=== PATIENT | male | born 1955 | race Caucasian/White ===

== ENCOUNTER 2022-03-22 00:08 | Day surgery (SDC) | payer MEDICARE, OTHER, SELFPAY ==
[2022-03-16 11:03] VITALS: BMI 36.2
--- NOTE | 2022-03-16 11:20 | PC.NURSE ---
Report to the Outpatient Waiting Room, entrance under the green pavilion located off [facility], at time ____1130___ on date ___03/22/22____. OR Time: __1329 . - You and your visitor will be asked a series of questions to screen for COVID 19 for your protection. - Only one visitor is allowed at this time. - The patient visitor is requested to leave or wait in car when not with patient. - A mask is required within the hospital. Patients may have clear liquids (water, carbonated beverages, clear teas, apple juice) until 3 hours prior to surgery (1030 AM) with a maximum of 20 ounces. - No food from midnight until time of surgery - Infants may have breast milk until 4 hours before surgery, infant formula 6 hours prior to surgery. - Children will be allowed to drink immediately following surgery. If applicable, please bring a bottle or sippy cup to assist with drinking. Juice, water, soda, and popsicles are readily available. For infants on formula, please bring formula the day of surgery. Pacifiers are allowed. Take the following medications with a SIP of water the morning of surgery: NONE Medications to discontinue per physician VITAMINS 3 DAYS PRIOR TO SURGERY, Date to take last dose 03/18/22 Please no make-up, nail arabic, hairspray, perfume, deodorant, or body powder the day of surgery. No jewelry (including any body piercings) or valuables the day of surgery, leave them at home. Please take a shower or bath the night before, or the morning of, surgery with an antibacterial soap. Wear comfortable, loose fitting clothing. Children are encouraged to wear pajamas. - Jewelry must be removed prior to entering the operating room. Rings and piercings that are not removed may be cut off. - The hospital will not accept responsibility for valuables. - Please leave all valuables, including medications, at home the day of surgery. If you are going home after surgery, a licensed moving van driver must drive you home. - NO public transportation without another adult. - We recommend that an adult stay with you for 24 hours following discharge. - We also recommend that you do not drive, make important decision, drink alcoholic beverages, or take any drugs that were not prescribed by your health care provider for at least 24 hours after your discharge time. For Pediatric surgeries, we recommend two adults accompany the child home (only one inside the building at this time). Follow any additional instructions given to you from your surgeon. If you or anyone in your household have experienced Covid symptoms in the past week, please notify your surgeon or the nurse liaison at the phone number below for possible testing. Telephone instructions given to ___PT and asked if any additional questions and then verbalized understanding. Patient advised to call surgeon office or pre surgery nurse liaison [phone] if any additional questions.
--- NOTE | 2022-03-21 14:01 | WPDANESEPPF ---
Anes - Initial Pre Proc Eval Procedure: Operation Date: 03/22/22 13:30 Proposed Procedures p Arthroscopic Left Knee Partial Medial Meniscectomy, Proceed As Indicated - Fletcher Pattreson MD Date/Time: 03/21/22 14:01 Surgeon: Fletcher Patterson MD Pre Op Diagnosis: acute medial meniscus tear left knee Patient Data Age: 66 Gender: M Height: 1.75 m Weight: 111.36 kg Allergies Allergy/AdvReac Type Severity Reaction Status Date / Time meperidine Allergy Unknown N/V Verified 03/16/22 10:58 Home Medications Medication Instructions Recorded Confirmed Type allopurinol 300 mg tablet 150 mg PO QAM 03/07/22 03/16/22 History atorvastatin 10 mg tablet 10 mg PO QAM 03/07/22 03/16/22 History cholecalciferol (vitamin D3) 10 10 mcg PO QAM 03/07/22 03/16/22 History mcg (400 unit) capsule coenzyme Q10 200 mg capsule (Co 200 mg PO HS 03/07/22 03/16/22 History Q-10) loratadine 10 mg tablet (Allergy 10 mg PO DAILY 03/07/22 03/16/22 History Relief (loratadine)) mecobalamin (vitamin B12) 1,000 2,000 mcg sublingual DAILY 03/07/22 03/16/22 History mcg disintegrating tablet,sublingual metformin 500 mg tablet 500 mg PO QID 03/07/22 03/16/22 History omeprazole 40 mg capsule,delayed 40 mg PO QAM 03/07/22 03/16/22 History release pioglitazone 30 mg tablet 30 mg PO QAM 03/07/22 03/16/22 History valsartan 160 mg tablet 160 mg PO QAM 03/07/22 03/16/22 History Patient hx anesthesia problems: none Family hx anesthesia problems: none Results Review: All pre-operative results and documents have been reviewed as part of the pre-operative evaluation. [facility] Past Medical History Medical History (Updated 03/21/22 @ 14:02 by Thor Stone MD) Arthritis Chronic GERD Diabetes Hyperlipidemia associated with type 2 diabetes mellitus Hypertension Obesity Surgical History Surgical History (Updated 03/07/22 @ 11:32 by Bianca Ellis MA) H/O hand surgery H/O neck surgery Hx of shoulder surgery Family History Family History (Updated 01/05/15 @ 09:04 by DOCTOR UNKNOWN) Other Family history of arthritis Family history of cardiovascular disease Family history of malignant neoplasm Hypertension Social History Social History (Updated 03/07/22 @ 11:33 by Bianca Ellis MA) Smoking status: Former smoker Tobacco type: cigarettes Second hand tobacco smoke exposure: No Additional smoking assessment comments: STATES QUIT SMOKING ABOUT 2015 UNABLE TO RECALL HOW MUCH OR HOW LONG Alcohol intake: current Alcohol use details: STATES VERY SELDOM Substance use: never Substance use type: does not use Living arrangements: with family Spiritual care concerns: No Anes - Eval Final PreProcedure Day of Procedure 03/21/22 14:01 Patient weight: obese Heart: regular rate and rhythm Lungs: clear to auscultation and normal air movement Airway: Mallampati scale class II Neurological: alert and oriented Last oral intake: >/= 8 hours ASA classification: III Emergent: no Anesthetic plan: proceed Anesthesia type and monitoring: general LMA Results Review: All pre-operative results and documents have been reviewed as part of the pre-operative evaluation. Informed Consent: The patient's anesthetic plan and its attendant risks and benefits were discussed with the patient/family/POA. Questions were solicited and answers provided to the satisfaction of the patient/family/POA.
[2022-03-22] VITALS (7 sets, daily range): BP systolic 120–151; BP diastolic 69–85; PULSE 62–70; RESP 16–20; TEMP 36.3–36.5; O2SAT 98–100
--- NOTE | 2022-03-22 10:25 | WPDHPUPDATE1 ---
History and Physical Update Update Date/Time: 03/22/22 10:25 History and Physical has been reviewed, including an updated exam of the patient. There are NO changes in the patient's condition. Risks, benefits, and alternatives have been discussed and questions answered. Patient agrees to proceed with procedure.
[2022-03-22] MEDS: LACTATED RINGERS 1,000 ML 30 ML IV CONT ×2 (12:15→14:34)
[2022-03-22] MEDS: KETOROLAC 15 MG/ML VIAL (*BKC) IV PUSH (12:21)
[2022-03-22] MEDS: ACETAMINOPHEN 500 MG TABLET 1000 MG PO (12:21)
[2022-03-22] MEDS: ceFAZolin 2 GM/D5W 50 ML 2 GM/50 ML BAG IVPB (13:30)
[2022-03-22 13:32] LABS: Glucose Point of Care 101 mg/dl (65-105)
[2022-03-22] MEDS: BUPIVACAINE/EPINEPHRINE 0.25% 50 ML VIAL INFILTRATE (13:53)
[2022-03-22 14:44] LABS: Glucose Point of Care 110 mg/dl (65-105)
--- NOTE | 2022-03-22 15:11 | W.PM.PROC2 ---
Procedure Note - Detailed Date of Procedure 03/22/22 Pre-op Diagnosis acute medial meniscus tear left knee Post-op Diagnosis Same Procedure Performed Arthroscopic partial medial meniscectomy, left knee. Surgeon Fletcher Patterson MD Director [facility] Pavithra Arechiga PA-C Anesthesia General Findings Extensive tear of the posterior horn of the meniscus. Subtotal posterior meniscectomy performed. Tapered along the medial edge. Arthritis was most pronounced at the patellofemoral joint with early grade 4 at the trochlea and grade 2 on the patella. Lateral compartment grade 1 on the tibia. Grade 2 on the medial femur and tibia. Description of Procedure The patient was identified and the surgical site confirmed and signed in the preoperative holding area. Antibiotics were started per protocol. She was brought to the operative room and transferred to the OR table. A general anesthetic was administered. Supine position with the operative lower extremity position in the leg gunn after placement of a well padded tourniquet. The leg support was lowered and the contralateral limb was supported with a soft bolster. The knee was prepped and draped in the usual sterile fashion. A time-out was performed. The portal sites were marked and infiltrated with 0.5% Marcaine 20 mL. The limb was exsanguinated and the tourniquet inflated to 300 mL Hg. Standard inferolateral and inferomedial portals were established. Inflow was obtained with the saline pump. The camera was introduced. Diagnostic inspection of the joint was accomplished. The meniscus was debrided with the arthroscopic shaver and punches until stable. The radiofrequency probe was also used for further d?bridement. Gentle chondroplasty at the trochlea and medial femur. The arthroscopic instruments were removed. The tourniquet released and wounds closed with subcutaneous 4-0 Monocryl absorbable suture. Steri strips and a sterile dressing were applied. A light elastic wrap was placed. The patient was extubated and brought to the recovery room in stable condition. Estimated Blood Loss -20.0 Drains No Complications No immediate complications Condition Stable Disposition PACU [facility] Billing Surgery - Charge Forward: Surgery Billing
[2022-03-22] MEDS: oxyCODONE HCL (*CRX) 5 MG TAB IR PO (16:20)
== END 2022-03-22 16:24 | disposition home or self-care (01) ==
PROVIDERS: PCP Internal Medicine; Visit Provider Orthopaedic Surgery
PROC: (CPT 29870; principal; 2022-03-22 13:30)
DX: M23.322 Other meniscus derangements, posterior horn of medial meniscus, left knee (principal); M17.12 Unilateral primary osteoarthritis, left knee; E11.9 Type 2 diabetes mellitus without complications; E78.5 Hyperlipidemia, unspecified; I10 Essential (primary) hypertension; K21.9 Gastro-esophageal reflux disease without esophagitis; Z79.84 Long term (current) use of oral hypoglycemic drugs; E66.9 Obesity, unspecified; Z68.36 Body mass index [BMI] 36.0-36.9, adult; Z87.891 Personal history of nicotine dependence
CPT/HCPCS: 29881; 82948; A9270; J0690; J1100; J1885; J2250; J2405; J2704; J3010; J7120